=== PATIENT | female | born 1945 | race Two or more races ===

== ENCOUNTER → 2018-11-21 | Outpatient (CLI) | payer OTHER | END | disposition home or self-care (01) | LOC: MAMO-SONO 08:15 → RAD 08:28 | DX: N63.11 Unspecified lump in the right breast, upper outer quadrant (principal); M19.90 Unspecified osteoarthritis, unspecified site; Z12.31 Encounter for screening mammogram for malignant neoplasm of breast; Z87.898 Personal history of other specified conditions ==

== ENCOUNTER 2019-01-25 07:11 | Outpatient (CLI) | payer OTHER | END 2019-01-25 07:34 | disposition home or self-care (01) | LOC: TOM 07:11 | DX: J44.9 Chronic obstructive pulmonary disease, unspecified (principal); R07.89 Other chest pain | CPT/HCPCS: 71260; Q9965 ==

== ENCOUNTER 2020-01-13 10:41 | Outpatient (CLI) | payer OTHER | END 2020-01-13 10:46 | disposition home or self-care (01) | LOC: MAMO-SONO 10:41 | PROVIDERS: ATTEND Internal Medicine Cardiovascular Disease | DX: Z12.31 Encounter for screening mammogram for malignant neoplasm of breast (principal); D24.1 Benign neoplasm of right breast ==

== ENCOUNTER → 2021-01-13 14:58 | Outpatient (CLI) | payer OTHER | END | disposition home or self-care (01) | LOC: RAD 14:58 | PROVIDERS: ATTEND Internal Medicine Cardiovascular Disease | DX: M77.31 Calcaneal spur, right foot (principal); M77.32 Calcaneal spur, left foot; M12.871 Other specific arthropathies, not elsewhere classified, right ankle and foot; M12.872 Other specific arthropathies, not elsewhere classified, left ankle and foot ==

== ENCOUNTER 2025-04-24 10:01 | Outpatient (CLI) | payer OTHER | END 2025-04-24 10:02 | disposition home or self-care (01) | LOC: NUCLEAR 10:01 | PROVIDERS: ATTEND Internal Medicine Cardiovascular Disease | DX: R41.2 Retrograde amnesia (principal) | CPT/HCPCS: 78803; A9557 ==